=== PATIENT | female | born 1985 | race African-American/Black ===

== ENCOUNTER 2017-01-15 14:03 | Observation (INO) | payer MEDICAID, OTHER ==
[~2017-01-15] VITALS: Ht 152.4 cm; Wt 56.0 kg
[2017-01-15] VITALS (10 sets, daily range): BP systolic 132–155; BP diastolic 57–88; PULSE 51–98; RESP 15–16; TEMP 97.9–98.1; O2SAT 97–100
[~2017-01-15 14:03] MED LIST: CYCL1TAB29 PO; NAPR500 PO
--- NOTE | 2017-01-15 14:15 | PD ---
Physical Exam Date Seen by Provider: Jan 15, 2017 Time Seen by Provider: 14:12 Narrative 31 YOBF C/O L JAW SWELLING X1 DAY TEMPORARY FILLING 1 YR AGO NO F/C,SOB OR DIFFICULTY SWALLOWING VS NOTED AWAITING BED PLACEMENT Data Data Last Documented VS Vital Signs Date Time Temp Pulse Resp B/P Pulse Ox O2 Delivery O2 Flow Rate FiO2 01/15/17 14:06 98.1 87 16 98 MDM Medical Record Reviewed: Yes Supervised Visit with ESTER: Yes Jarret Becerril Jan 15, 2017 14:15
[2017-01-15] MEDS ORDERED: SODIUM CHLOR 0.9% 1000 ML INJ 1,000 ML IV SCH (14:24)
[2017-01-15] MEDS ORDERED: AMPICILLIN-SULBACTAM INJ 3 GM in SODIUM CHLORIDE 0.9% INJ 100 ML IV ONE (14:30)
[2017-01-15] MEDS ORDERED: VANCOMYCIN INJ 1,000 MG in SODIUM CHLOR 0.9% 250 ML INJ 250 ML IV ONE (14:30)
[2017-01-15] MEDS ORDERED: DEXAMETHASONE SOD PHOS 4 MG/ML VIAL IV PUSH ONE (14:30)
[2017-01-15] MEDS ORDERED: SODIUM CHLORIDE 0.9% FLUSH 10 ML FLUSH IV FLUSH PRN (14:30)
[2017-01-15] MEDS ORDERED: ONDANSETRON HCL 4 MG/2 ML VIAL IVP ONE (14:30)
[2017-01-15] MEDS ORDERED: MORPHINE SULFATE 4 MG/ML INJ IV PUSH ONE ×2 (14:30→16:15)
--- NOTE | 2017-01-15 14:33 | PD ---
HPI Chief Complaint: Facial Pain or Swelling Time Seen by Provider: 14:28 Travel History International Travel<30 days: No Contact w/Intl Traveler<30days: No Traveled to known affect area: No History of Present Illness HPI Patient comes in complaining of left sided facial pain and swelling that she awoke with earlier this morning. Patient states she's been having left lower dental pain over the past 2 days from a filling that has been eroding away. Patient states she has appointment to have this addressed later this week. Patient portion taking 800 mg ibuprofen over the past couple of days and seemed to have Her pain under control however she woke. She has a large amount of facial swelling. Patient is been able to swallow her own saliva and speak in full sentences. Patient reports pain is throbbing like in nature and worse with movement of her mouth. Pain radiates into her ear. Denies any fevers, , chest pain, shortness breath, headache, or breast-feeding. PFSH Past Medical History Asthma: Yes Blood Disorders: No (N) Headaches: Yes : 2 Para: 2 Social History Alcohol Use: No Tobacco Use: Yes Substance Use: Yes (MARIJUANA 03/18/08) Allergies-Medications (Allergen,Severity, Reaction): Coded Allergies: No Known Allergies (Verified , 01/15/17) Reported Meds & Prescriptions Reported Meds & Active Scripts Active Review of Systems Except as stated in HPI: all other systems reviewed are Neg Physical Exam Narrative GENERAL: Well-developed, well nourished, in no acute distress, and non-ill appearing. SKIN: Focused skin assessment warm and dry. HEAD: Atraumatic. Normocephalic. EYES: Pupils equal and round. EOMI. No scleral icterus. No injection or drainage. ENT: No nasal bleeding or discharge. Mucous membranes pink and moist. Large amount of soft tissue swelling is tender to palpation over her left lower mandible to the submandibular. Floor the mouth consistent over soft palpation. NECK: Trachea midline. No cervical lymphadenopathy. Supple. No nuclear rigidity. CARDIOVASCULAR: Regular rate and rhythm. No murmur appreciated. RESPIRATORY: No accessory muscle use. No respiratory distress. Clear to auscultation. Breath sounds equal bilaterally. MUSCULOSKELETAL: No obvious deformities. No clubbing. No cyanosis. No edema. Full range of motion. NEUROLOGICAL: Awake and alert. No obvious cranial nerve deficits. Motor grossly within normal limits. Normal speech. PSYCHIATRIC: Appropriate mood and affect; insight and judgment normal. Data Data Last Documented VS Vital Signs Date Time Temp Pulse Resp B/P Pulse Ox O2 Delivery O2 Flow Rate FiO2 01/15/17 17:20 55 16 143/87 99 01/15/17 16:36 Room Air 01/15/17 15:06 98.1 Orders Basic Metabolic Panel (Bmp) (01/15/17 14:24) Complete Blood Count With Diff (01/15/17 14:24) Prothrombin Time / Inr (Pt) (01/15/17 14:24) Act Partial Throm Time (Ptt) (01/15/17 14:24) Iv Access Insert/Monitor (01/15/17 14:24) Ecg Monitoring (01/15/17 14:24) Oximetry (01/15/17 14:24) Morphine Inj (Morphine Inj) (01/15/17 14:30) Ondansetron Inj (Zofran Inj) (01/15/17 14:30) Ampicillin-Sulbactam Inj (Unasyn Inj) (01/15/17 14:30) Sodium Chlor 0.9% 1000 Ml Inj (Ns 1000 M (01/15/17 14:24) Sodium Chloride 0.9% Flush (Ns Flush) (01/15/17 14:30) Vancomycin Inj (Vancomycin Inj) (01/15/17 14:30) Dexamethasone Inj (Decadron Inj) (01/15/17 14:30) Blood Culture (01/15/17 14:24) Lactic Acid (01/15/17 14:24) Ct Soft Tiss Neck W Iv Cont (01/15/17 ) Iohexol 350 Inj (Omnipaque 350 Inj) (01/15/17 15:14) Potassium Phosphate Inj (Potassium Phosp (01/15/17 16:15) Potassium Chloride (Kcl) (01/15/17 16:15) Morphine Inj (Morphine Inj) (01/15/17 16:15) Admit Order (Ed Use Only) (01/15/17 17:47) Labs Laboratory Tests Test 01/15/17 01/15/17 12:01 14:40 White Blood Count 6.2 TH/MM3 Red Blood Count 4.02 MIL/MM3 Hemoglobin 12.9 GM/DL Hematocrit 37.1 % Mean Corpuscular Volume 92.3 FL Mean Corpuscular Hemoglobin 32.0 PG Mean Corpuscular Hemoglobin 34.7 % Concent Red Cell Distribution Width 15.0 % Platelet Count 250 TH/MM3 Mean Platelet Volume 7.9 FL Neutrophils (%) (Auto) 76.6 % Lymphocytes (%) (Auto) 14.7 % Monocytes (%) (Auto) 8.2 % Eosinophils (%) (Auto) 0.1 % Basophils (%) (Auto) 0.4 % Neutrophils # (Auto) 4.8 TH/MM3 Lymphocytes # (Auto) 0.9 TH/MM3 Monocytes # (Auto) 0.5 TH/MM3 Eosinophils # (Auto) 0.0 TH/MM3 Basophils # (Auto) 0.0 TH/MM3 CBC Comment DIFF FINAL Differential Comment Prothrombin Time 10.6 SEC Prothromb Time International 1.0 RATIO Ratio Activated Partial 30.4 SEC Thromboplast Time Sodium Level 138 MEQ/L Potassium Level 2.8 MEQ/L Chloride Level 102 MEQ/L Carbon Dioxide Level 27.3 MEQ/L Anion Gap 9 MEQ/L Blood Urea Nitrogen 5 MG/DL Creatinine 0.87 MG/DL Estimat Glomerular Filtration 93 ML/MIN Rate Random Glucose 79 MG/DL Lactic Acid Level 2.0 mmol/L Calcium Level 9.3 MG/DL MDM Medical Decision Making Medical Screen Exam Complete: Yes Emergency Medical Condition: Yes Interpretation(s) EKG reviewed by Dr. Catherine, shows sinus bradycardia with ventricular rate of 56. No STEMI and no acute changes. Differential Diagnosis Dental abscess, dental infection, Ceasar's angina, other Narrative Course Patient seen and examined. Initial laboratory studies were obtained and reviewed. CT was obtained reviewed read by the radiologist. Patient was given IV fluids, morphine for pain, Zofran for nausea, IV Unasyn and IV vancomycin, and IV Decadron. Patient is reassessed reports she feels as though her face is swelling more, continues to speak in full sentences and swallowing saliva. Discussed all findings and plan of care with patient. Patient is agreeable for admission. All questions were answered. Discussed patient with Dr. Catherine, who is in agreement with plan of care and disposition. Physician Communication Physician Communication [phone] Albert, who is agreeable to the patient. Diagnosis Primary Impression: Facial cellulitis Additional Impressions: Periapical abscess Hypokalemia Admitting Information Admitting Physician Requests: Observation Condition: Stable ,Royce D PA Jan 15, 2017 14:33
[2017-01-15] MEDS ORDERED: IOHEXOL 350 MG/ML 10 ML VIAL (for RAD DIAG) IV ONE (15:14)
[2017-01-15 15:16] LABS: AUTOMATED NEUTROPHIL # 4.8 TH/MM3 (1.8-7.7); BASOPHIL % 0.4 % (0.0-2.0); EOSINOPHIL % 0.1 % (0.0-4.0); HEMATOCRIT 37.1 % (35.0-46.0); HEMO FLAGS DIFF FINAL; LYMPH % 14.7 % (9.0-44.0); LYMPHOCYTE # 0.9 TH/MM3 (1.0-4.8); MEAN CELL VOLUME 92.3 FL (80.0-100.0); MEAN CORPUSCULAR HGB CONC 34.7 % (32.0-36.0); MONO % 8.2 % (0.0-8.0); NEUT % 76.6 % (16.0-70.0); PLATELET COUNT 250 TH/MM3 (150-450); RED BLOOD COUNT 4.02 MIL/MM3 (4.00-5.30); WHITE BLOOD COUNT 6.2 TH/MM3 (4.0-11.0)
[2017-01-15 15:41] LABS: APTT (PATIENT) 30.4 SEC (24.3-30.1); PROTHROMBIN TIME - PATIENT 10.6 SEC (9.8-11.6)
--- NOTE | 2017-01-15 15:42 | RADRPT ---
EXAM DATE/TIME: 01/15/2017 15:09 [facility] COMPARISON: No previous studies available for comparison. INDICATIONS : Left sided swelling and left dental pain. IV CONTRAST: 70 cc Omnipaque 350 (iohexol) IV RADIATION DOSE: 21.66 CTDIvol (mGy) MEDICAL HISTORY : None SURGICAL HISTORY : None. ENCOUNTER: Initial ACUITY: 2 days PAIN SCALE: 6/10 LOCATION: Left neck facial TECHNIQUE: Volumetric scanning of the neck was performed. Using automated exposure control and adjustment of th e mA and/or kV according to patient size, radiation dose was kept as low as reasonably achievable to obtain optimal diagnostic quality images. FINDINGS: They are periapical lucencies around the posterior mandibular molars bilaterally which may represent periapical abscesses. There is also dental caries within a left mandibular premolar. There is extensi ve soft tissue swelling and edema around the left mandible extending into the left submandibular parvez on characteristic of cellulitis. No discrete or drainable fluid seen to suggest abscess. Borderline e nlarged left-sided submandibular and retromandibular lymph nodes are present. No airway obstructing lesions or foreign bodies. Paranasal sinuses are clear. CONCLUSION: Periapical lucencies around posterior mandibular molars bilaterally which may represent periapical ab scesses. There is also dental caries in a left mandibular premolar. There is extensive cellulitis sha und the left mandible and extending into the submandibular region with borderline enlarged lymph node s. No discrete or drainable abscess identified in the soft tissues. Jarret Pride MD on January 15, 2017 at 15:35 Board Certified Radiologist. This report was verified electronically.
[2017-01-15 15:47] LABS: BICARBONATE 27.3 MEQ/L (21.0-32.0)
[2017-01-15 16:07] LABS: POTASSIUM 2.8 MEQ/L (3.5-5.1)
[2017-01-15] MEDS ORDERED: POTASSIUM CHLORIDE 20 MEQ CONTROLLED RELEASE TAB PO ONE (16:15)
[2017-01-15] MEDS ORDERED: POTASSIUM PHOSPHATE INJ 30 MMOL in SODIUM CHLOR 0.9% 250 ML INJ 250 ML IV ONE (16:15)
--- NOTE | 2017-01-15 18:03 | HHI.HP ---
[facility] Unknown Admission Diagnosis facial cellulitis, hypokalemia Diagnoses: Chief Complaint: facial swelling/pain Travel History International Travel<30 Days: No Contact w/Intl Traveler <30 Da: No Traveled to Known Affected Are: No History of Present Illness 31-year-old female with no significant past medical history presents with a 1 day history of left sided facial swelling and pain. The patient reports around 3am this morning 01/15 she woke up with significant left sided facial pain with radiation in the left neck described as constant pressure pain 9.510. She reports no fevers but did have chills. She then looked in the mirror and noticed significant swelling throughout the left side of her face. She tried gargling warm salt water with no relief. She denies any drainage or foul taste in her mouth. She reports nausea but no vomiting. Denies abdominal pain or diarrhea. Denies chest pain, shortness of breath, or cough. Recently she has noticed problems with her filling on the left lower mandible, and she planned to go to a walk-in dentist later this week. Otherwise, the patient denies any other medical complaints at this time. Review of Systems Except as stated in HPI: all other systems reviewed are Neg Past Family Social History Past Medical History Denies any PMH Past Surgical History Denies any prior surgeries Reported Medications Denies taking any medications on regular basis. Allergies: Coded Allergies: No Known Allergies (Verified , 01/15/17) Active Ordered Medications Current Medications Medications (Trade) Dose Ordered Sig/David Route Start Time Stop Time Status Last Admin Sodium Chloride 2 ml 2 ml UNSCH PRN IV FLUSH 01/15/17 14:30 (Potassium Phosphate Inj/NS 250 ml Inj) 260 ml @ 43.333 mls/ hr ONCE ONCE IV 01/15/17 16:15 01/15/17 22:14 01/15/17 17:19 Family History Mother with high blood pressure Does not know father's history Social History Smokes tobacco, 10 cigarettes a day Drinks alcohol every other day, maybe 1 [place] Smokes marijuana Denies any IVDU Physical Exam Vital Signs Vital Signs Date Time Temp Pulse Resp B/P Pulse Ox O2 Delivery O2 Flow Rate FiO2 01/15/17 17:20 55 16 143/87 99 01/15/17 16:36 55 15 145/87 100 Room Air 01/15/17 15:06 98.1 95 16 155/78 97 Room Air 01/15/17 15:02 97 01/15/17 14:27 98 155/82 97 01/15/17 14:12 132/88 01/15/17 14:06 98.1 87 16 98 Physical Exam GENERAL: Well-nourished, well-developed young female patient in [facility]. SKIN: Warm and dry. No rash. HEAD: Normocephalic. Atraumatic. EYES: Pupils equal and round. No scleral icterus. No injection or drainage. ENT: No nasal bleeding or discharge. Mucous membranes pink and moist. Significant diffuse left facial edema that starts at the mandible and extends to the upper cheek and submandibular area, significantly tender to palpation. Left buccal mucosa erythematous and edematous. Unable to fully evaluate the posterior dentition as patient unable to fully open the mouth secondary to the pain/edema. Posterior oropharynx clear, no tonsillar exudate/edema. NECK: Supple. Trachea midline. CARDIOVASCULAR: Bradycardic, Regular rhythm. S1, S2 noted. No murmur appreciated. RESPIRATORY: No accessory muscle use. Clear to auscultation. Breath sounds equal bilaterally. GASTROINTESTINAL: Abdomen soft, non-tender, nondistended. Normoactive bowel sounds x4. MUSCULOSKELETAL: No obvious deformities. Extremities without clubbing, cyanosis , or edema. NEUROLOGICAL: Awake and alert. No obvious cranial nerve deficits. Motor grossly within normal limits. Normal speech. PSYCHIATRIC: Appropriate mood and affect; insight and judgment normal. Laboratory Laboratory Tests Test 01/15/17 01/15/17 12:01 14:40 White Blood Count 6.2 Red Blood Count 4.02 Hemoglobin 12.9 Hematocrit 37.1 Mean Corpuscular Volume 92.3 Mean Corpuscular Hemoglobin 32.0 Mean Corpuscular Hemoglobin 34.7 Concent Red Cell Distribution Width 15.0 Platelet Count 250 Mean Platelet Volume 7.9 Neutrophils (%) (Auto) 76.6 Lymphocytes (%) (Auto) 14.7 Monocytes (%) (Auto) 8.2 Eosinophils (%) (Auto) 0.1 Basophils (%) (Auto) 0.4 Neutrophils # (Auto) 4.8 Lymphocytes # (Auto) 0.9 Monocytes # (Auto) 0.5 Eosinophils # (Auto) 0.0 Basophils # (Auto) 0.0 CBC Comment DIFF FINAL Differential Comment Prothrombin Time 10.6 Prothromb Time International 1.0 Ratio Activated Partial 30.4 Thromboplast Time Sodium Level 138 Potassium Level 2.8 Chloride Level 102 Carbon Dioxide Level 27.3 Anion Gap 9 Blood Urea Nitrogen 5 Creatinine 0.87 Estimat Glomerular Filtration 93 Rate Random Glucose 79 Lactic Acid Level 2.0 Calcium Level 9.3 Date/Time Procedure Status Source Growth 01/15/17 14:55 Aerobic Blood Culture Received Blood Peripheral Pending 01/15/17 14:55 Anaerobic Blood Culture Received Blood Peripheral Pending Result Diagram: 01/15/17 1201 01/15/17 1440 Imaging Last Impressions Neck CT 01/15/17 0000 Signed Impressions: Service Date/Time: Sunday, January 15, 2017 15:09 - CONCLUSION: Periapical lucencies around posterior mandibular molars bilaterally which may represent periapical abscesses. There is also dental caries in a left mandibular premolar. There is extensive cellulitis around the left mandible and extending into the submandibular region with borderline enlarged lymph nodes. No discrete or drainable abscess identified in the soft tissues. Jarret Pride MD Assessment and Plan Problem List: (1) Facial cellulitis ICD Code: L03.211 Status: Acute (2) Periapical abscess ICD Code: K04.7 Status: Acute (3) Hypokalemia ICD Code: E87.6 Status: Acute Assessment and Plan 31-year-old female with no significant past medical history presents with a 1 day history of left sided facial swelling and pain. Left Facial Cellulitis & Periapical Abscesses: Neck CT images reviewed by me, shows Periapical lucencies around posterior mandibular molars bilaterally which may represent periapical abscesses; also dental caries in a left mandibular premolar; extensive cellulitis around the left mandible and extending into the submandibular region with borderline enlarged lymph nodes; No discrete or drainable abscess identified in the soft tissues. Afebrile, no leukocytosis, lactic acid 2.0. -Continue antibiotics with IV Unasyn 3G q6h, with plan to transition to Augmentin po at discharge -Continue IV Decadron 4mg q8h david and IV toradol 15mg q6h david for inflammation -[place] prn and IV morphine prn breakthrough pain -Monitor blood cultures. -Needs outpatient f/up with dentist -Mechanical soft diet Hypokalemia: K 2.8. S/p IV and po KCl replacement in the ED. -Repeat BMP in am -Replace K as needed Tobacco/Marijuana Use: counseled on cessation. Patient declines nicotine patch. DVT Prophylaxis: teds/SCDs Written by Olya Barnes, acting as scribe for Dr. Albert on 01/15/17 at 18: 02. Discussed Condition With Patient, ER PA Attending Statement All or portions of this note were transcribed by scribe Olya Barnes. I, Dr. Josr Albert personally performed the history, physical exam, and medical decision making; and confirmed the accuracy of the information in the transcribed note. Authenticated by Dr. Josr Albert on 01/15/17 at 18:39. Olya Barnes PA-C Jan 15, 2017 18:03 Josr Albert MD Jan 15, 2017 18:40
[2017-01-15] MEDS ORDERED: ACETAMINOPHEN/HYDROcodone 325 MG/7.5 MG TAB PO PRN (18:15)
[2017-01-15] MEDS ORDERED: NALOXONE HCL 0.4 MG/ML AMP IV PRN (18:15)
[2017-01-15] MEDS ORDERED: ACETAMINOPHEN 325 MG TAB PO PRN (18:15)
[2017-01-15] MEDS ORDERED: ONDANSETRON HCL 4 MG/2 ML VIAL IVP PRN (18:15)
[2017-01-15] MEDS ORDERED: ACETAMINOPHEN/HYDROcodone 325 MG/5 MG TAB PO PRN (18:15)
[2017-01-15] MEDS ORDERED: MORPHINE SULFATE 4 MG/ML INJ IV PRN (18:15)
[2017-01-15] MEDS ORDERED: DOCUSATE SODIUM 100 MG CAP PO PRN (18:15)
[2017-01-15] MEDS: SODIUM CHLORIDE 0.9% FLUSH 10 ML FLUSH IV FLUSH SCH (21:00)
[2017-01-15] MEDS: AMPICILLIN-SULBACTAM INJ 3 GM in SODIUM CHLORIDE 0.9% INJ 100 ML IV SCH (21:03)
[2017-01-15] MEDS: DEXAMETHASONE SOD PHOS 4 MG/ML VIAL IV PUSH SCH (22:29)
[2017-01-15] MEDS: KETOROLAC TROMETHAMINE 30 MG/ML (IVP) VIAL IV PUSH SCH (23:13)
[2017-01-16] MEDS: AMPICILLIN-SULBACTAM INJ 3 GM in SODIUM CHLORIDE 0.9% INJ 100 ML IV SCH ×2 (02:00→08:06)
[2017-01-16 04:29] VITALS: BP 120/69; PULSE 55; RESP 18; TEMP 98.3; O2SAT 97
[2017-01-16 05:04] LABS: AUTOMATED NEUTROPHIL # 7.4 TH/MM3 (1.8-7.7); BASOPHIL % 0.2 % (0.0-2.0); HEMATOCRIT 38.6 % (35.0-46.0); HEMO FLAGS DIFF FINAL; LYMPH % 7.7 % (9.0-44.0); LYMPHOCYTE # 0.6 TH/MM3 (1.0-4.8); MEAN CELL VOLUME 93.1 FL (80.0-100.0); MEAN CORPUSCULAR HEMOGLOBIN 31.5 PG (27.0-34.0); MEAN CORPUSCULAR HGB CONC 33.9 % (32.0-36.0); MONO % 2.5 % (0.0-8.0); NEUT % 89.6 % (16.0-70.0); PLATELET COUNT 234 TH/MM3 (150-450); RED BLOOD COUNT 4.14 MIL/MM3 (4.00-5.30); RED CELL DISTRIBUTION WIDTH 15.3 % (11.6-17.2); WHITE BLOOD COUNT 8.2 TH/MM3 (4.0-11.0)
[2017-01-16] MEDS: KETOROLAC TROMETHAMINE 30 MG/ML (IVP) VIAL IV PUSH SCH (05:19)
[2017-01-16] MEDS: DEXAMETHASONE SOD PHOS 4 MG/ML VIAL IV PUSH SCH (05:20)
[2017-01-16 05:21] LABS: BICARBONATE 27.6 MEQ/L (21.0-32.0)
[2017-01-16] MEDS ORDERED: PRED20 PO (07:44)
[2017-01-16] MEDS ORDERED: AUGM875T PO (07:44)
[2017-01-16] MEDS ORDERED: IBUP400T20 PO (07:44)
--- NOTE | 2017-01-16 07:51 | HHI.PR ---
Subjective Remarks Follow up facial cellulitis. Patient states that she feels much better this morning. Swelling has improved. No dyspnea/wheeze. No difficulty swallowing. She wants to go home. Objective Vitals Vital Signs Date Time Temp Pulse Resp B/P Pulse Ox O2 Delivery O2 Flow Rate FiO2 01/16/17 06:37 16 01/16/17 04:29 98.3 55 18 120/69 97 01/15/17 23:07 97.9 58 16 147/79 100 01/15/17 22:49 56 16 149/57 97 01/15/17 20:30 51 16 141/78 01/15/17 17:20 55 16 143/87 99 01/15/17 16:36 55 15 145/87 100 Room Air 01/15/17 15:06 98.1 95 16 155/78 97 Room Air 01/15/17 15:02 97 01/15/17 14:27 98 155/82 97 01/15/17 14:12 132/88 01/15/17 14:06 98.1 87 16 98 Result Diagram: 01/16/17 0444 01/16/17 0444 Imaging Last Impressions Neck CT 01/15/17 0000 Signed Impressions: Service Date/Time: Sunday, January 15, 2017 15:09 - CONCLUSION: Periapical lucencies around posterior mandibular molars bilaterally which may represent periapical abscesses. There is also dental caries in a left mandibular premolar. There is extensive cellulitis around the left mandible and extending into the submandibular region with borderline enlarged lymph nodes. No discrete or drainable abscess identified in the soft tissues. Jarret Pride MD Objective Remarks General: No acute distress. Heart: Regular rate and rhythm. No murmur. Lungs: Clear to auscultation bilaterally. No wheezes, rales, or rhonchi. Breathing is nonlabored. Abdomen: Soft, nontender, nondistended. Extremities: No lower extremity edema. Psych: Alert and oriented. HEENT: Swelling along left jawline, improving. Procedures None Urinary Catheter: No Vascular Central Line Catheter: No A/P Problem List: (1) Facial cellulitis ICD Code: L03.211 Status: Acute (2) Periapical abscess ICD Code: K04.7 Status: Acute (3) Hypokalemia ICD Code: E87.6 Status: Resolved Assessment and Plan 1. Left facial cellulitis and periapical abscesses: Improving. Patient feels much better today. Once to go home. Still with swelling along the left jawline, but less than yesterday. Continue antibiotics, steroids, ibuprofen. Patient advised to follow-up with a dentist as soon as possible. 2. Hypokalemia: Resolved. 3. Tobacco/marijuana use: Counseled to quit. 4. DVT prophylaxis: LIN [place]. Discharge Planning Discharge home in stable condition. Follow-up with dentist as soon as possible. Return to the ER if symptoms worsen. Soft diet as tolerated. Activity as tolerated. Josr Albert MD Jan 16, 2017 07:50
--- NOTE | 2017-01-16 07:51 | HHI.DCPOC ---
Discharge Care Plan Diagnosis: (1) Hypokalemia (2) Facial cellulitis (3) Periapical abscess Goals to Promote Your Health * To prevent worsening of your condition and complications * To maintain your health at the optimal level Directions to Meet Your Goals Take your medications as prescribed Follow your dietary instruction Follow activity as directed Keep your appointments as scheduled Take your immunizations and boosters as scheduled If your symptoms worsen call your PCP, if no PCP go to Urgent Care Center or Emergency Room Smoking is Dangerous to Your Health. Avoid second hand smoke Call the 24-hour hour crisis hotline for domestic abuse at Josr Albert MD Jan 16, 2017 07:51
[2017-01-16] MEDS: SODIUM CHLORIDE 0.9% FLUSH 10 ML FLUSH IV FLUSH SCH (08:07)
[2017-01-16 08:21] VITALS: BP 100/59; PULSE 55; RESP 20; TEMP 97.9; O2SAT 98
--- NOTE | 2017-01-16 13:56 | EKG ---
Date Performed: 01/15/2017 Time Performed: 17:56:28 PTAGE: 31 years EKG: SUPRAVENTRICULAR BRADYCARDIA ST DEVIATION AND MODERATE T-WAVE ABNORMALITY, CONSIDER ANTERIO R ISCHEMIA ABNORMAL ECG NO PREVIOUS TRACING DOCTOR: Donna Valdes Interpretating Date/Time 01/16/2017 13:55:49
== END 2017-01-16 11:13 | disposition home or self-care (01) ==
LOC: NEPD 14:03 → NEDA 17:49 → NEPGCP 23:02
PROVIDERS: ADMIT Family Medicine; ATTEND Family Medicine
DX: L03.211 Cellulitis of face (principal); K04.7 Periapical abscess without sinus; E87.6 Hypokalemia; J45.909 Unspecified asthma, uncomplicated; R51 Headache; F17.210 Nicotine dependence, cigarettes, uncomplicated; R00.1 Bradycardia, unspecified; R68.83 Chills (without fever); R11.0 Nausea; F12.90 Cannabis use, unspecified, uncomplicated; R59.9 Enlarged lymph nodes, unspecified; R94.31 Abnormal electrocardiogram [ECG] [EKG]
CPT/HCPCS: 70491; 80048; 83605; 85025; 85610; 85730; 87040; 93005; 96365; 96366; 96367; 96375; 99285; G0378; J0295; J1100; J1885; J2270; J2405; J3370; J7030; J7050; Q9967

== ENCOUNTER 2017-08-15 12:39 | Emergency (ER) | payer MEDICAID ==
[~2017-08-15 12:39] MED LIST changes: +AUGM875T PO; -CYCL1TAB29 PO; +IBUP1TAB5 PO; -NAPR500 PO; +PRED20 PO
[2017-08-15 12:43] VITALS: BP 120/57; PULSE 59; RESP 18; TEMP 98.5; O2SAT 98
--- NOTE | 2017-08-15 13:15 | PD ---
HPI Chief Complaint: Injury Time Seen by Provider: 13:02 Travel History International Travel<30 days: No Contact w/Intl Traveler<30days: No Traveled to known affect area: No History of Present Illness HPI She complains of pain in the left foot and ankle. 2 days ago she fell onto it and twisted it and has pain in both foot and ankle. Worse with weightbearing or movement. Symptoms severity is moderate. PFSH Past Medical History Asthma: Yes Blood Disorders: No (N) Headaches: Yes : 2 Para: 2 Social History Alcohol Use: No Tobacco Use: No Substance Use: No Allergies-Medications (Allergen,Severity, Reaction): Coded Allergies: No Known Allergies (Verified , 01/15/17) Reported Meds & Prescriptions Reported Meds & Active Scripts Active Prednisone 20 Mg Tab 20 Mg PO DAILY Ibuprofen 400 Mg Tab 400 Mg PO Q6H PRN Augmentin (Amoxicillin-Clavulanate) 875-125 mg Tab 875 Mg PO BID not for use in CrCl <30 ml/min. Review of Systems General / Constitutional: No: Fever HENT: No: Headaches Cardiovascular: No: Chest Pain or Discomfort Respiratory: No: Cough Physical Exam Narrative SKIN: Focused skin assessment reveals no rash or ulcers. Skin is warm and dry. Palpation shows no induration or nodules. Psych: Normal mood and affect. Normal insight and judgment. Left foot: Tender along the lateral margin as well as the dorsum Left ankle: Lateral malleoli tenderness but no bruising or open wound Data Data Last Documented VS Vital Signs Date Time Temp Pulse Resp B/P (MAP) Pulse Ox O2 Delivery O2 Flow Rate FiO2 08/15/17 12:43 98.5 59 18 120/57 (78) 98 Room Air Orders Orders Ankle, Complete ([id number]) (08/15/17 ) Foot, Complete ([id number]) (08/15/17 ) [facility] Medical Decision Making Medical Screen Exam Complete: Yes Emergency Medical Condition: Yes Medical Record Reviewed: Yes Differential Diagnosis Fracture, dislocation, contusion Narrative Course I have reviewed the patient's electronic medical record. I reviewed her left foot x-rays which are normal I Reviewed her left ankle x-rays which are normal Supportive care discussed such as ice elevation and limitation of weightbearing Diagnosis Primary Impression: Soft tissue injury of left foot Qualified Codes: S99.922A - Unspecified injury of left foot, initial encounter Additional Instructions: The patient was advised to follow up with their physician and return if they worsen. Ice and elevate left foot as needed Med/Other Pt SpecificInfo: Other Disposition: 01 DISCHARGE HOME Condition: Stable Josr Garcia MD Aug 15, 2017 13:15
--- NOTE | 2017-08-15 13:45 | RADRPT ---
EXAM DATE/TIME: 08/15/2017 13:17 [facility] COMPARISON: ANKLE LEFT COMPLETE ([id number]), August 15, 2017, 13:15. INDICATIONS : Left lateral foot and ankle pain and swelling after landing on it sideways. MEDICAL HISTORY : None. SURGICAL HISTORY : None. ENCOUNTER: Initial ACUITY: 2 days PAIN SCORE: 8/10 LOCATION: Left foot/lateral FINDINGS: Three view examination of the left foot demonstrates no soft tissue swelling, dislocation, or fractur e. The tarsal bones appear intact. The interphalangeal and metatarsophalangeal joints are intact. The calcaneus is intact. Bony mineralization is normal. CONCLUSION: Unremarkable examination of the left foot. Ellis Santizo MD on August 15, 2017 at 13:39 Board Certified Radiologist. This report was verified electronically.
--- NOTE | 2017-08-15 13:46 | RADRPT ---
EXAM DATE/TIME: 08/15/2017 13:15 [facility] COMPARISON: No previous studies available for comparison. INDICATIONS : Left lateral foot and ankle pain and swelling after landing on it sideways MEDICAL HISTORY : None. SURGICAL HISTORY : None. ENCOUNTER: Initial ACUITY: 2 days PAIN SCORE: 8/10 LOCATION: Left ankle/lateral FINDINGS: Three view exam was performed of the left ankle. The bony structures are in normal alignment. No ev idence of fracture, dislocation, or soft tissue swelling. The ankle mortise is intact. No radiopaqu e foreign bodies are seen. Bony mineralization is normal. CONCLUSION: Unremarkable examination of the left ankle. Ellis Santizo MD on August 15, 2017 at 13:44 Board Certified Radiologist. This report was verified electronically.
[2017-08-15 15:11] VITALS: BP 110/70
== END 2017-08-15 15:13 | disposition home or self-care (01) ==
LOC: NEPD 12:39
DX: S99.922A Unspecified injury of left foot, initial encounter (principal); W18.30XA Fall on same level, unspecified, initial encounter
CPT/HCPCS: 73610; 73630; 99283

== ENCOUNTER 2018-02-02 20:41 | Emergency (ER) | payer MEDICAID ==
[~2018-02-02] VITALS: Ht 152.4 cm; Wt 60.0 kg
[2018-02-02 21:22] VITALS: BP 124/75; PULSE 61; RESP 18; TEMP 99.5; O2SAT 100
[2018-02-02] MEDS ORDERED: BACT800T5 PO (22:08)
[2018-02-02] MEDS ORDERED: CEPH-460 PO (22:08)
--- NOTE | 2018-02-02 22:12 | PD ---
HPI Chief Complaint: Abdominal Pain Time Seen by Provider: 21:52 Travel History International Travel<30 days: No Contact w/Intl Traveler<30days: No Traveled to known affect area: No History of Present Illness HPI This is a 32-year-old female who presents for evaluation. She reports that she developed a rash on the anterior surface of the right knee 2 days ago. Since then she has developed pain in her right inguinal region and anterior right thigh. Pain is an aching pain which is worse with palpation. Denies any fevers or chills, abdominal pain, nausea or vomiting, dysuria, vaginal bleeding or discharge. Denies any injury to the skin. Denies any itching. Denies any scratching. She has no other complaints at this time. [facility] Past Medical History Asthma: Yes Blood Disorders: No (N) Headaches: Yes Migraines: Yes Tetanus Vaccination: Unknown Influenza Vaccination: No ?: Not LMP: 01/07/2018 : 2 Para: 2 Past Surgical History Surgical History: No Previous Surgery Social History Alcohol Use: No Tobacco Use: Yes Substance Use: No Allergies-Medications (Allergen,Severity, Reaction): Coded Allergies: No Known Allergies (Verified Adverse Reaction, Unknown, 02/02/18) Reported Meds & Prescriptions Reported Meds & Active Scripts Active Keflex (Cephalexin) 500 Mg Cap 500 Mg PO Q8H Bactrim DS (Sulfamethoxazole-Trimethoprim) 800-160 Mg Tab 1 Tab PO BID Review of Systems Except as stated in HPI: all other systems reviewed are Neg Physical Exam Narrative GENERAL: Well-developed well-nourished female no acute distress SKIN: Warm and dry. There is some lichenification noted to the anterior surface of the right knee. There is mild tender erythema on the anterior surface of the right knee. There is no proximal streaking. There is no induration or fluctuance. HEAD: Atraumatic. Normocephalic. EYES: Pupils equal and round. No scleral icterus. No injection or drainage. ENT: No nasal bleeding or discharge. Mucous membranes pink and moist. NECK: Trachea midline. No JVD. CARDIOVASCULAR: Regular rate and rhythm. No murmur appreciated. RESPIRATORY: No accessory muscle use. Clear to auscultation. Breath sounds equal bilaterally. GASTROINTESTINAL: Abdomen soft, non-tender, nondistended. Hepatic and splenic margins not palpable. MUSCULOSKELETAL: Skin as noted above. There is no right knee joint effusion. The patient maintains full range of motion of the right knee. She has tenderness to palpation to her right inguinal lymph nodes which are enlarged. There is no lower extremity edema. 2+ dorsalis pedis and posterior tibial pulses bilaterally. Negative Homans. NEUROLOGICAL: Awake and alert. No obvious cranial nerve deficits. Motor grossly within normal limits. Normal speech. Data Data Last Documented VS Vital Signs Date Time Temp Pulse Resp B/P (MAP) Pulse Ox O2 Delivery O2 Flow Rate FiO2 02/02/18 21:22 99.5 61 18 124/75 (91) 100 Orders Orders Sulfamet-Trimeth Ds 800-160 Mg (Bactrim (02/02/18 22:15) Cephalexin (Keflex) (02/02/18 22:15) Ed Discharge Order (02/02/18 22:12) [facility] Medical Decision Making Medical Screen Exam Complete: Yes Emergency Medical Condition: Yes Medical Record Reviewed: Yes Differential Diagnosis Cellulitis, lymphangitis, lymphadenitis, lymphadenopathy, DVT Narrative Course Examination is consistent with cellulitis to the anterior right knee with associated right inguinal lymphadenopathy. The patient will be discharged on Bactrim and Keflex. Diagnosis Primary Impression: Cellulitis Additional Impression: Lymphadenopathy Additional Instructions: Medication as prescribed. Return for any new or worsening symptoms. Med/Other Pt SpecificInfo: Prescription(s) given Scripts Cephalexin (Keflex) 500 Mg Cap 500 MG PO Q8H for Infection, #30 CAP 0 Refills Prov: Bert Otero MD 02/02/18 Sulfamethoxazole-Trimethoprim (Bactrim DS) 800-160 Mg Tab 1 TAB PO BID for Infection, #20 TAB 0 Refills Prov: Bert Otero MD 02/02/18 Disposition: 01 DISCHARGE HOME Condition: Stable Jamar Nguyen Feb 02, 2018 22:12
[2018-02-02] MEDS ORDERED: CEPHALEXIN MONOHYDRATE 500 MG CAP PO ONE (22:15)
[2018-02-02] MEDS ORDERED: SULFAMETHOXAZOLE-TRIMETHOPRIM DS 800-160 MG TAB PO ONE (22:15)
== END 2018-02-02 22:31 | disposition home or self-care (01) ==
LOC: NEPD 20:41
DX: L03.115 Cellulitis of right lower limb (principal); R59.1 Generalized enlarged lymph nodes; Z72.0 Tobacco use
CPT/HCPCS: 99283

== ENCOUNTER 2018-08-10 18:04 | Inpatient (IN) ==
[~2018-08-10 18:04] MED LIST changes: -AUGM875T PO; +Diphtheria/Tetanus/Pertussis Vaccine Inj 0.5 ML Syringe IM ONE; -IBUP1TAB5 PO; +Measles/Mumps/Rubella Vaccine Inj 0.5 ML Vial SQ ONE; -PRED20 PO
[2018-08-10] MEDS ORDERED: Oxytocin 30 Units/500ml Premix 30 UNITS/500 ML BAG IV.SIG ONE (18:25)
[2018-08-10] MEDS ORDERED: Naloxone Inj 0.4 MG/ML Vial IV.PUSH PRN ×2 (18:25→22:07)
[2018-08-10] MEDS ORDERED: Sodium Chlor 0.9% Inj 500 ML IV.SIG PRN (18:25)
[2018-08-10] MEDS ORDERED: Sod Chloride 0.9% Inj 1,000 ML IV.CONT PRN (18:25)
[2018-08-10] MEDS ORDERED: fentaNYL Citrate Inj 100 MCG/2 ML Ampul IV.PUSH PRN ×2 (18:25)
[2018-08-10] MEDS ORDERED: Penicillin G Potassium Inj 5,000,000 UNIT in Sodium Chloride 0.9% Inj 100 ML IV.SIG ONE (18:25)
[2018-08-10] MEDS ORDERED: miSOPROStol 200 MCG Tablet ONE ×3 (18:30→19:51)
[2018-08-10] MEDS ORDERED: Citric Acid/Sodium Citrate Liq 30 ML UDC PO SCH (18:30)
[2018-08-10] MEDS ORDERED: Methylergonovine Inj 0.2 MG/ML Ampul ONE (18:30)
--- NOTE | 2018-08-10 18:49 | ED ---
History of Present Illness Primary Care Physician: NOT REQUIRED Chief Complaint: contractions History of Present Illness: 32-year-old at 34 weeks who presents to OB ED with a chief complaint of contractions. She reports the contractions started at about 12 PM today. She denies leakage of fluid or vaginal bleeding. She reports movement. She gets her care from Eunice Mckeon and denies any problems during the . OB history: Last delivery was a demise at 27 weeks in June 2017 Past medical history: Denies any medical problems specifically no asthma, no hypertension Past surgical history: Denies any surgical history Family History: Denies any contributory family history Allergies: No known drug allergies Social history: Patient reports marijuana use but denies tobacco, alcohol, or other illicit drugs Weeks Gestation:: 34 Para: 6 : 8 - Inpatient Certification I certify that the inpatient services were ordered in accordance with Medicare regulations governing the order. This includes certification that hospital inpatient services are reasonable and necessary and in the case of services not specified as inpatient-only under 42 CFR 419.22(n), that they are appropriately provided as inpatient services in accordance to with the 2-midnight benchmark under 43 CFR 412.3(e) Estimated Total Length of Stay (Days): 2 Plans for Post Hospital Care: Home Review of Systems All other systems reviewed negative except as stated in HPI [facility] - History History Provided By: Patient - Medical / Surgical Hx Neg / Unobtainable Medical Problems Denied: Yes Surgical History: No Previous Surgery - Social History I have reviewed the patient's Social History: Yes Medications and Allergies Active Medications: Active Medications Citric Acid/Sodium Citrate (Sodium Citrate/Citric Acid Liq) 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 [facility] Stop: 08/14/18 18:29 Fentanyl Citrate (Fentanyl Inj) 50 mcg IV.PUSH Q1H PRN PRN Reason: Pain Scale 3 - 5 Fentanyl Citrate (Fentanyl Inj) 100 mcg IV.PUSH Q1H PRN PRN Reason: PAIN SCALE 6 TO 10 Lactated Ringer's (Lr 1000 Ml Inj) 1,000 mls @ 3,000 mls/hr IV.SIG UNSCH PRN PRN Reason: compromise or epidural Lactated Ringer's (Lr 1000 Ml Inj) 1,000 mls @ 125 mls/hr IV.CONT .Q8H [facility] Sodium Chloride (Ns Inj) 1,000 mls @ 100 mls/hr IV.CONT .Q10H PRN PRN Reason: SEE LABEL COMMENTS Oxytocin (Pitocin 30 Units/Ns 500 Ml Premix) 30 units in 500 mls @ 999 mls/hr IV.SIG BOLUS ONE Stop: 08/10/18 18:55 Penicillin G Potassium 5,000, (000 unit/ Sodium Chloride) 100 mls @ 200 mls/hr IV.SIG ONCE ONE Stop: 08/10/18 18:54 Penicillin G Potassium 2,500, (000 unit/ Sodium Chloride) 100 mls @ 200 mls/hr IV.SIG Q4H [facility] Sodium Chloride (Ns Inj) 500 mls @ 1,000 mls/hr IV.SIG UNSCH PRN PRN Reason: SEE LABEL COMMENTS Lidocaine HCl (Xylocaine 1% Inj) 0.1 ml I-DERMAL PRN PRN PRN Reason: For IV start Stop: 08/13/18 18:24 Lidocaine HCl (Xylocaine 1% Inj) 10 ml INFILTRATN PRN PRN PRN Reason: For episiotomy repair Stop: 08/12/18 18:24 Mineral Oil (Muri-Lube Oil) 10 ml TOPICAL PRN PRN PRN Reason: PRN perineal massage Naloxone HCl (Narcan Inj) 0.1 mg IV.PUSH Q2M PRN PRN Reason: for opiate reversal Ondansetron HCl (Zofran Inj) 4 mg IV.PUSH Q6H PRN PRN Reason: NAUSEA OR VOMITING Sodium Chloride (Ns Flush) 2 ml IV.FLUSH BID CHRIS Sodium Chloride (Ns Flush) 2 ml IV.FLUSH PRN PRN PRN Reason: FLUSH AFTER USING IV ACCESS Allergies Allergy/AdvReac Type Severity Reaction Status Date / Time No Known Allergies Allergy Verified 08/10/18 18:34 Exam Narrative: GENERAL: Well-nourished, well-developed patient. SKIN: Warm and dry. HEAD: Normocephalic and atraumatic. EYES: No scleral icterus. No injection or drainage. ENT: No nasal drainage noted. Mucous membranes pink. Airway patent. NECK: Supple, trachea midline. No JVD. CARDIOVASCULAR: Regular rate and rhythm without murmurs, gallops, or rubs. RESPIRATORY: Breath sounds equal bilaterally. No accessory muscle use. ABDOMEN/GI: Abdomen soft, non-tender, bowel sounds present, no rebound, no guarding Gravid to 34 weeks size GENITOURINARY: Cervix: midline Dilatation: 7 Effacement: 90 Station: -1 Presentation: vertex Membranes: intact Uterine Contractions: Q2-3min FHT's: Category: 1 Baseline: 150 Reactive: yes Variability: moderate Decels: no EXTREMITIES: No cyanosis or edema. BACK: Nontender without obvious deformity. No CVA tenderness. NEUROLOGICAL: Awake and alert. Motor and sensory grossly within normal limits. Five out of 5 muscle strength in all muscle groups. Normal speech. Assessment and Plan - Diagnosis (1) 34 weeks gestation of Code(s): Z3A.34 - 34 weeks gestation of Status: Acute Plan: 32-year-old at 34 weeks who is in labor. Cervical exam: /-. FHT Category 1 with baseline of 150s. - Admit to labor and delivery - Obtain records from Eunice Mckeon - Administer dose of penicillin as she has not ruptured her membranes yet - Due to patient being a 8, will be prepared for possible uterine atony post delivery. Discharge Plan - Physicians Team Primary Care Provider: NOT REQUIRED, Attending Provider: Jorge L Hernandez V
--- NOTE | 2018-08-10 18:53 | P.OBGPN ---
OB - ED Note Patient Name: Andrew Freed Date of : 87 Patient Status: Inpatient Attending Provider: Jorge L Hernandez V Date: 08/10/18 18:33 Initialization Date: 08/10/18 18:33 History of Present Illness Primary Care Physician: NOT REQUIRED Chief Complaint: contractions History of Present Illness: 32-year-old at 34 weeks who presents to OB ED with a chief complaint of contractions. She reports the contractions started at about 12 PM today. She denies leakage of fluid or vaginal bleeding. She reports movement. She gets her care from Eunice Mckeon and denies any problems during the . OB history: Last delivery was a demise at 27 weeks in June 2017 Past medical history: Denies any medical problems specifically no asthma, no hypertension Past surgical history: Denies any surgical history Family History: Denies any contributory family history Allergies: No known drug allergies Social history: Patient reports marijuana use but denies tobacco, alcohol, or other illicit drugs Weeks Gestation:: 34 Para: 6 : 8 - Inpatient Certification I certify that the inpatient services were ordered in accordance with Medicare regulations governing the order. This includes certification that hospital inpatient services are reasonable and necessary and in the case of services not specified as inpatient-only under 42 CFR 419.22(n), that they are appropriately provided as inpatient services in accordance to with the 2-midnight benchmark under 43 CFR 412.3(e) Estimated Total Length of Stay (Days): 2 Plans for Post Hospital Care: Home Review of Systems All other systems reviewed negative except as stated in HPI [facility] - History History Provided By: Patient - Medical / Surgical Hx Neg / Unobtainable Medical Problems Denied: Yes Surgical History: No Previous Surgery - Social History I have reviewed the patient's Social History: Yes Medications and Allergies Active Medications: Active Medications Citric Acid/Sodium Citrate (Sodium Citrate/Citric Acid Liq) 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 [facility] Stop: 08/14/18 18:29 Fentanyl Citrate (Fentanyl Inj) 50 mcg IV.PUSH Q1H PRN PRN Reason: Pain Scale 3 - 5 Fentanyl Citrate (Fentanyl Inj) 100 mcg IV.PUSH Q1H PRN PRN Reason: PAIN SCALE 6 TO 10 Lactated Ringer's (Lr 1000 Ml Inj) 1,000 mls @ 3,000 mls/hr IV.SIG UNSCH PRN PRN Reason: compromise or epidural Lactated Ringer's (Lr 1000 Ml Inj) 1,000 mls @ 125 mls/hr IV.CONT .Q8H [facility] Sodium Chloride (Ns Inj) 1,000 mls @ 100 mls/hr IV.CONT .Q10H PRN PRN Reason: SEE LABEL COMMENTS Oxytocin (Pitocin 30 Units/Ns 500 Ml Premix) 30 units in 500 mls @ 999 mls/hr IV.SIG BOLUS ONE Stop: 08/10/18 18:55 Penicillin G Potassium 5,000, (000 unit/ Sodium Chloride) 100 mls @ 200 mls/hr IV.SIG ONCE ONE Stop: 08/10/18 18:54 Penicillin G Potassium 2,500, (000 unit/ Sodium Chloride) 100 mls @ 200 mls/hr IV.SIG Q4H [facility] Sodium Chloride (Ns Inj) 500 mls @ 1,000 mls/hr IV.SIG UNSCH PRN PRN Reason: SEE LABEL COMMENTS Lidocaine HCl (Xylocaine 1% Inj) 0.1 ml I-DERMAL PRN PRN PRN Reason: For IV start Stop: 08/13/18 18:24 Lidocaine HCl (Xylocaine 1% Inj) 10 ml INFILTRATN PRN PRN PRN Reason: For episiotomy repair Stop: 08/12/18 18:24 Mineral Oil (Muri-Lube Oil) 10 ml TOPICAL PRN PRN PRN Reason: PRN perineal massage Naloxone HCl (Narcan Inj) 0.1 mg IV.PUSH Q2M PRN PRN Reason: for opiate reversal Ondansetron HCl (Zofran Inj) 4 mg IV.PUSH Q6H PRN PRN Reason: NAUSEA OR VOMITING Sodium Chloride (Ns Flush) 2 ml IV.FLUSH BID [facility]RIS Sodium Chloride (Ns Flush) 2 ml IV.FLUSH PRN PRN PRN Reason: FLUSH AFTER USING IV ACCESS Allergies Allergy/AdvReac Type Severity Reaction Status Date / Time No Known Allergies Allergy Verified 08/10/18 18:34 Exam Narrative: GENERAL: Well-nourished, well-developed patient. SKIN: Warm and dry. HEAD: Normocephalic and atraumatic. EYES: No scleral icterus. No injection or drainage. ENT: No nasal drainage noted. Mucous membranes pink. Airway patent. NECK: Supple, trachea midline. No JVD. CARDIOVASCULAR: Regular rate and rhythm without murmurs, gallops, or rubs. RESPIRATORY: Breath sounds equal bilaterally. No accessory muscle use. ABDOMEN/GI: Abdomen soft, non-tender, bowel sounds present, no rebound, no guarding Gravid to 34 weeks size GENITOURINARY: Cervix: midline Dilatation: 7 Effacement: 90 Station: -1 Presentation: vertex Membranes: intact Uterine Contractions: Q2-3min FHT's: Category: 1 Baseline: 150 Reactive: yes Variability: moderate Decels: no EXTREMITIES: No cyanosis or edema. BACK: Nontender without obvious deformity. No CVA tenderness. NEUROLOGICAL: Awake and alert. Motor and sensory grossly within normal limits. Five out of 5 muscle strength in all muscle groups. Normal speech. Assessment and Plan - Diagnosis (1) 34 weeks gestation of Code(s): Z3A.34 - 34 weeks gestation of Status: Acute Plan: 32-year-old at 34 weeks who is in labor. Cervical exam: /-. FHT Category 1 with baseline of 150s. - Admit to labor and delivery - Obtain records from Eunice Mckeon - Administer dose of penicillin as she has not ruptured her membranes yet - Due to patient being a 8, will be prepared for possible uterine atony post delivery. Discharge Plan - Physicians Team Primary Care Provider: NOT REQUIRED, Attending Provider: Jorge L Hernandez V
[2018-08-10] MEDS ORDERED: fentaNYL 2MCG-Bupiv 0.125% Epi 150 ML EPIDURAL ONE (19:14)
[2018-08-10] MEDS ORDERED: Lidocaine 1% Inj 50 ML Vial ONE (19:20)
[2018-08-10 19:21] LABS: Baso % (Auto) 0.1 % (0.0-2.0); Eos % (Auto) 0.2 % (0.0-4.0); Hematocrit 34.1 % (35.0-46.0); Hemoglobin 11.4 gm/dL (11.6-15.3); Lymph % (Auto) 15.3 % (9.0-44.0); Mean Corpuscular HGB Conc 33.6 % (32.0-36.0); Mean Corpuscular Hemoglobin 33.4 pg (27.0-34.0); Mean Corpuscular Volume 99.3 fL (80.0-100.0); Mono # (Auto) 1.1 th/mm3 (0.0-0.9); Mono % (Auto) 8.6 % (0.0-8.0); Neut % (Auto) 75.8 % (16.0-70.0); Platelet Count 265 th/mm3 (150-450); Red Blood Count 3.43 mil/mm3 (4.00-5.30); Red Cell Distribution Width 12.9 % (11.6-17.2); White Blood Count 13.2 th/mm3 (4.0-11.0)
[2018-08-10] MEDS ORDERED: Lidocaine PF 1% Inj 5 ML Vial ONE (19:31)
[2018-08-10] MEDS ORDERED: Lidocaaine 1.5%/Epinephrine 1:200,000 PF Inj 5 ML Amp ONE (19:31)
[2018-08-10] MEDS ORDERED: Bupivacaine PF 0.25% Inj 10 ML Vial ONE (19:31)
[2018-08-10] MEDS ORDERED: fentaNYL 2MCG-Bupiv 0.125% Epi 150 ML EPIDURAL PRN (21:20)
[2018-08-10] MEDS ORDERED: fentaNYL Citrate Inj 100 MCG/2 ML Ampul EPIDURAL ONE (21:20)
[2018-08-10 21:26] LABS: Bilirubin,Urine Negative (Negative); Clarity,Urine Hazy (Clear); Color,Urine Yellow (Yellw/Straw); Glucose,Urine (UA) Negative (Negative); Leukocyte Esterase,Urine Trace (Negative); Mucus,Urine Few /lpf (Occasional); Nitrite,Urine Negative (Negative); Specific Gravity,Urine 1.026 (1.002-1.035); Squamous Epithelial Cell,Urine 1 /hpf (0-5)
[2018-08-10 21:30] LABS: Amphetamine Urine With Conf Neg (Neg); Benzodiazepine Urine With Conf Neg (Neg)
[2018-08-10] MEDS ORDERED: Benzocaine 20% Top Spray 60 ML Can TOPICAL PRN (22:07)
[2018-08-10] MEDS ORDERED: Zolpidem Tartrate 5 MG Tablet PO PRN (22:07)
[2018-08-10] MEDS ORDERED: Oxytocin 30 Units/500ml Premix 30 UNITS/500 ML BAG IV.CONT PRN (22:07)
[2018-08-10] MEDS ORDERED: Witch Hazel 50%/Glyderin 12.5% 40 Pad Jar RECTAL PRN (22:07)
[2018-08-10] MEDS ORDERED: Bisacodyl 10 MG Supp RECTAL PRN (22:07)
--- NOTE | 2018-08-10 22:08 | P.OBDELI ---
Weeks Gestation: 34 Patient Started Active Labor: Yes Active Labor Start Date: 08/10/18 Active Labor Start Time: 20:00 Medical Induction of Labor: No Artificial Rupture of Membrane: No Anesthesia: Epidural Episiotomy: none Vaginal Delivery: Normal, Spontaneous Presentation: Occiput anterior Nuchal Cord: None Delayed Cord Clamping (45 sec): Yes Placenta: Spontaneous delivery, Intact Laceration: None Estimated blood loss (mL): 200 Infant: Male ( 8/8, NICU present for pre-term delivery) Additional Information: 32-year-old at 34 weeks who presented in PTL.
[2018-08-10] MEDS ORDERED: Penicillin G Potassium Inj 2,500,000 UNIT in Sodium Chlor 0.9% Inj 100 ML IV.SIG SCH (22:26)
[2018-08-11] MEDS: Acetaminophen 325 MG Tablet PO PRN ×2 (01:58→19:33)
--- NOTE | 2018-08-11 07:32 | P.PNOB ---
Subjective Post day: 1 Interval history: Patient is a 32-year-old delivered at 34 weeks. Patient is day 1 after . Patient's pain is well-controlled. Patient reports eating and drinking without any nausea or vomiting. Patient reports minimal bleeding. Patient has passed gas but no bowel movements. Patient is walking without lower extremity pain or shortness of breath. Patient reports desire for contraception and breast-feeding. She is interested in receiving a depo shot before discharge. Objective Vital Signs/I&O: Vital Signs 08/10/18 18:50 08/10/18 18:53 08/10/18 19:40 Temperature 98.4 F Pulse Rate 80 91 H Respiratory Rate 18 Blood Pressure 108/52 L 109/59 L 08/10/18 20:10 08/10/18 20:20 08/10/18 20:30 Temperature 98.8 F Pulse Rate 62 63 Respiratory Rate 18 Blood Pressure 111/55 L 112/55 L 08/10/18 21:10 08/10/18 21:25 08/10/18 21:30 Temperature Pulse Rate 66 66 61 Respiratory Rate Blood Pressure 104/51 L 08/10/18 21:31 08/10/18 21:50 08/10/18 22:01 Temperature Pulse Rate 60 61 62 Respiratory Rate Blood Pressure 96/38 L 107/50 L 112/59 L 08/10/18 22:11 08/10/18 22:30 08/10/18 22:45 Temperature Pulse Rate 61 59 L Respiratory Rate 18 18 18 Blood Pressure 93/48 L 102/63 08/10/18 22:46 08/10/18 22:59 08/10/18 23:00 Temperature 98.8 F Pulse Rate 58 L Respiratory Rate 18 Blood Pressure 107/59 L 08/10/18 23:01 08/10/18 23:15 08/10/18 23:30 Temperature Pulse Rate 54 L 52 L Respiratory Rate 18 18 Blood Pressure 110/50 L 104/54 L 08/10/18 23:31 08/11/18 00:15 Temperature 98.2 F Pulse Rate 49 L 64 Respiratory Rate 18 Blood Pressure 106/56 L 109/68 Intake & Output 08/10/18 08/11/18 08/11/18 18:59 06:59 18:59 Weight 75 kg Result Diagrams: 08/10/18 18:50 Objective Remarks: GENERAL: Well-nourished, well-developed patient. CARDIOVASCULAR: Regular rate and rhythm without murmurs, gallops, or rubs. RESPIRATORY: Breath sounds equal bilaterally. No accessory muscle use. ABDOMEN/GI: Abdomen soft, non-tender. Fundus: Firm, non-tender slightly above umbilicus. GENITOURINARY: Light to moderate bleeding. EXTREMITIES: No cyanosis or edema, non-tender, without signs of DVT. Medications and IVs: Active Medications Acetaminophen (Tylenol) 650 mg PO Q4H PRN PRN Reason: PAIN SCALE 1 TO 2 Last Admin: 08/11/18 01:58 Dose: 650 mg Al Hydroxide/Mg Hydroxide (Milk Of Magnesia Liq) 30 ml PO Q12H PRN PRN Reason: Mild Constipation Benzocaine (Americaine 20% [place]) 1 spray TOPICAL Q4H PRN PRN Reason: For Perineum Discomfort Bisacodyl (Dulcolax Supp) 10 mg RECTAL DAILY PRN PRN Reason: SEVERE CONSITIPATION Ephedrine Sulfate (Ephedrine/Ns Syringe) 10 mg IV.PUSH UNSCH PRN PRN Reason: SEE LABEL COMMENTS Stop: 08/11/18 21:20 Fentanyl/Bupivacaine/Sodium Chlor (Fentanyl 2 Mcg-Bupiv 0.125% Epi) 150 mls @ 10 mls/hr EPIDURAL PRN PRN PRN Reason: for Labor Pain Last Admin: 08/10/18 22:47 Dose: 10 mls/hr Oxytocin (Pitocin 30 Units/Ns 500 Ml Premix) 30 units in 500 mls @ 100 mls/hr IV.CONT UNSCH PRN PRN Reason: Heavy bleeding Ibuprofen (Motrin) 800 mg PO Q8H PRN PRN Reason: For Cramping Last Admin: 08/11/18 01:58 Dose: 800 mg Lactulose (Lactulose Liq) 30 ml PO DAILY PRN PRN Reason: SEVERE CONSITIPATION Miscellaneous Information (Misc Information) 1 each OTHER UNSCH PRN PRN Reason: SEE LABEL COMMENTS Stop: 08/11/18 21:20 Miscellaneous Information (Misc Information) 1 each OTHER UNSCH PRN PRN Reason: SEE LABEL COMMENTS Stop: 08/11/18 21:20 Naloxone HCl (Narcan Inj) 0.1 mg IV.PUSH Q2M PRN PRN Reason: for opiate reversal Ondansetron HCl (Zofran Odt) 4 mg PO Q6H PRN PRN Reason: NAUSEA OR VOMITING Senna/Docusate Sodium (Geovanna-Colace) 1 tab PO BID CHRIS Sennosides (Senokot) 17.2 mg PO Q12H PRN PRN Reason: Moderate Constipation Sodium Chloride (Ns Flush) 2 ml IV.FLUSH BID CHRIS Sodium Chloride (Ns Flush) 2 ml IV.FLUSH PRN PRN PRN Reason: FLUSH AFTER USING IV ACCESS Witch Swetha/Glycerin (Tucks Pads) 1 applicatio RECTAL QID PRN PRN Reason: HEMORRHOIDS Zolpidem Tartrate (Ambien) 5 mg PO HS PRN PRN Reason: SLEEP Assessment and Plan - Diagnosis (1) Normal course Code(s): Z39.2 - Encounter for routine follow-up Status: Acute Plan: Patient is a 32-year-old delivered at 34 weeks. Patient is day 1 after . Patient was counseled to do 6 weeks of pelvic rest. Patient was counseled to follow up in 6 weeks. Patient requested follow-up and contraception. --AF VSS --Continue routine care --Motrin and Percocet when necessary for pain --Encourage OOB --Pelvic rest for 6 weeks will need follow-up appointment at that time. --Contraception: Depo shot --Anticipate discharge tomorrow
[2018-08-11] MEDS ORDERED: medroxyPROGESTERone Acetate Inj 150 MG/ML Syringe IM ONE ×2 (08:00→18:15)
[2018-08-11] MEDS: Senna/Docusate Sodium 8.6/50 MG Tablet PO SCH (17:59)
[2018-08-11] MEDS ORDERED: Influenza (Quadrivalent) Vaccine 0.5 ML Syringe IM ONE (21:00)
[2018-08-12] MEDS: Senna/Docusate Sodium 8.6/50 MG Tablet PO SCH ×2 (02:18→08:27)
[2018-08-12] MEDS ORDERED: Diphtheria/Tetanus/Pertussis Vaccine Inj 0.5 ML Syringe IM ONE (08:30)
[2018-08-12] MEDS: Acetaminophen 325 MG Tablet PO PRN (09:29)
--- NOTE | 2018-08-12 09:41 | P.PNOB ---
Subjective Post day: 2 Interval history: day # 2. AFVSS overnight. Pain well-controlled. Decreased lochia. Denies dysuria. No breast tenderness. She is feeding the baby via breast. Appetite good. No nausea or vomiting. + flatus. one bowel movement. Ambulating well. Denies calf pain, shortness of breath, or cough. Otherwise, she is doing well this morning and has no other complaints. Objective Vital Signs/I&O: Vital Signs 08/11/18 19:41 08/12/18 08:00 Temperature 98.6 F 97.7 F Pulse Rate 45 L 48 L Respiratory Rate 20 16 Blood Pressure 113/61 121/67 Result Diagrams: 08/10/18 18:50 Objective Remarks: GENERAL: Well-nourished, well-developed patient. CARDIOVASCULAR: Regular rate and rhythm without murmurs, gallops, or rubs. RESPIRATORY: Breath sounds equal bilaterally. No accessory muscle use. ABDOMEN/GI: Abdomen soft, non-tender. Fundus: Firm, non-tender at umbilicus. GENITOURINARY: Light to moderate bleeding. EXTREMITIES: No cyanosis or edema, non-tender, without signs of DVT. Medications and IVs: Active Medications Acetaminophen (Tylenol) 650 mg PO Q4H PRN PRN Reason: PAIN SCALE 1 TO 2 Last Admin: 08/12/18 09:29 Dose: 650 mg Al Hydroxide/Mg Hydroxide (Milk Of Laura Kelley) 30 ml PO Q12H PRN PRN Reason: Mild Constipation Benzocaine (Americaine 20% [place]) 1 spray TOPICAL Q4H PRN PRN Reason: For Perineum Discomfort Bisacodyl (Dulcolax Supp) 10 mg RECTAL DAILY PRN PRN Reason: SEVERE CONSITIPATION Fentanyl/Bupivacaine/Sodium Chlor (Fentanyl 2 Mcg-Bupiv 0.125% Epi) 150 mls @ 10 mls/hr EPIDURAL PRN PRN PRN Reason: for Labor Pain Last Admin: 08/10/18 22:47 Dose: 10 mls/hr Oxytocin (Pitocin 30 Units/Ns 500 Ml Premix) 30 units in 500 mls @ 100 mls/hr IV.CONT UNSCH PRN PRN Reason: Heavy bleeding Ibuprofen (Motrin) 800 mg PO Q8H PRN PRN Reason: For Cramping Last Admin: 08/12/18 09:28 Dose: 800 mg Lactulose (Lactulose Liq) 30 ml PO DAILY PRN PRN Reason: SEVERE CONSITIPATION Naloxone HCl (Narcan Inj) 0.1 mg IV.PUSH Q2M PRN PRN Reason: for opiate reversal Ondansetron HCl (Zofran Odt) 4 mg PO Q6H PRN PRN Reason: NAUSEA OR VOMITING Senna/Docusate Sodium (Geovanna-Colace) 1 tab PO BID [facility] Last Admin: 08/12/18 08:27 Dose: Not Given Sennosides (Senokot) 17.2 mg PO Q12H PRN PRN Reason: Moderate Constipation Sodium Chloride (Ns Flush) 2 ml IV.FLUSH BID [facility] Last Admin: 08/12/18 02:18 Dose: Not Given Sodium Chloride (Ns Flush) 2 ml IV.FLUSH PRN PRN PRN Reason: FLUSH AFTER USING IV ACCESS Witch Swetha/Glycerin (Tucks Pads) 1 applicatio RECTAL QID PRN PRN Reason: HEMORRHOIDS Zolpidem Tartrate (Ambien) 5 mg PO HS PRN PRN Reason: SLEEP Assessment and Plan - Diagnosis (1) Normal course Code(s): Z39.2 - Encounter for routine follow-up Status: Acute Plan: Patient is a 32-year-old delivered at 34 weeks. Patient is day 2 after . Patient was counseled to do 6 weeks of pelvic rest. Patient was counseled to follow up in 6 weeks. Patient requested follow-up and contraception. --AF VSS --Continue routine care --Motrin and Percocet when necessary for pain --Encourage OOB --Pelvic rest for 6 weeks will need follow-up appointment at that time. --Contraception: Depo shot and then plans to get an IUD --Anticipate discharge today
== END 2018-08-12 10:49 | disposition home or self-care (01) ==
LOC: HOBED 18:04 → H2E 18:25 → H1EA 18:30
PROVIDERS: ADMIT Obstetrics & Gynecology; ATTEND Obstetrics & Gynecology